=== PATIENT | female | born 1950 | race Caucasian/White ===

== ENCOUNTER → 2024-03-14 17:07 | Outpatient (REF) | payer MEDICARE, SELFPAY | LOC: PAVMRI 17:07 | PROVIDERS: ATTENDING PHYSICIAN Pain Medicine Interventional Pain Medicine; FAMILY PHYSICIAN Internal Medicine | DX: M54.16 Radiculopathy, lumbar region (principal) | CPT/HCPCS: 72148 ==

== ENCOUNTER 2024-09-11 06:18 | Day surgery (SDC) | payer MEDICARE, SELFPAY ==
[2024-09-11 08:55] LABS: Glucose - Point of Care 115 mg/dl (70-99)
== END 2024-09-11 10:36 | disposition home or self-care (01) ==
LOC: GI 06:18
PROVIDERS: ATTENDING PHYSICIAN Surgery
DX: Z12.11 Encounter for screening for malignant neoplasm of colon (principal); K57.30 Diverticulosis of large intestine without perforation or abscess without bleeding; K64.9 Unspecified hemorrhoids; D17.5 Benign lipomatous neoplasm of intra-abdominal organs; Z86.0100 Personal history of colon polyps, unspecified
CPT/HCPCS: 45380; 88305; 82962